=== PATIENT | male | born 1980 | race Caucasian/White ===

== ENCOUNTER 2020-03-28 06:21 | Emergency (ER) | payer BC ==
[~2020-03-28] VITALS: Ht 180.3 cm; Wt 145.1 kg
[2020-03-28] MEDS ORDERED: LIDOCAINE VISCUS 2% 15 ML UDC ONE (06:44)
[2020-03-28] MEDS ORDERED: MAG HYDROX/AL HYDROX/SIMETH 30 ML LIQUID UDC ONE (06:44)
[2020-03-28] MEDS ORDERED: MAG HYDROX/AL HYDROX/SIMETH 30 ML LIQUID UDC PO ONE (06:45)
[2020-03-28] MEDS ORDERED: LIDOCAINE VISCUS 2% 15 ML UDC MM ONE (06:45)
[2020-03-28] MEDS ORDERED: PANTOPRAZOLE SODIUM 40 MG TABLET.DR PO ONE ×2 (06:45)
[2020-03-28] MEDS ORDERED: ONDANSETRON 4 MG/2 ML VIAL ONE (06:58)
[2020-03-28] MEDS ORDERED: ONDANSETRON 4 MG/2 ML VIAL IV ONE (07:00)
[2020-03-28] MEDS ORDERED: IV NORMAL SALINE 1000 ML BAG IV ONE (07:00)
[2020-03-28 07:14] LABS: BASOPHILS # (AUTO) 0.1 K/uL (0.0-8.0); BASOPHILS % (AUTO) 0.4 % (0.0-2.0); EOSINOPHILS % (AUTO) 0.2 % (0.0-7.0); HEMATOCRIT 44.2 % (36.7-47.1); HEMOGLOBIN 14.9 g/dL (12.5-16.3); LYMPHOCYTES # (AUTO) 1.5 K/uL (20.0-40.0); LYMPHOCYTES % (AUTO) 10.4 % (20.5-51.5); MEAN CORPUSCULAR HEMOGLOBIN 30.4 uug (23.8-33.4); MEAN CORPUSCULAR HGB CONC 34 g/dL (32.5-36.3); MEAN CORPUSCULAR VOLUME 90.4 fL (73.0-96.2); MONOCYTES # (AUTO) 0.5 K/uL (2.0-10.0); MONOCYTES % (AUTO) 3.5 % (0.0-11.0); NEUTROPHILS # (AUTO) 12.7 K/uL (1.8-8.9); NEUTROPHILS % (AUTO) 85.5 % (38.5-71.5); PLATELET COUNT (AUTO) 255 K/uL (152-348); RED BLOOD CELL COUNT(AUTO) 4.89 MIL/uL (4.06-5.63); WHITE BLOOD COUNT (AUTO) 14.8 K/uL (3.6-10.2)
[2020-03-28 07:24] LABS: CREATININE 1.3 mg/dL (0.6-1.3)
[2020-03-28] MEDS ORDERED: HYDROMORPHONE 1 MG/1 ML DISP.SYRIN ONE ×2 (07:27→07:59)
[2020-03-28 07:30] LABS: BILIRUBIN,DIRECT 0.1 mg/dL (0.0-0.2); BILIRUBIN,TOTAL 0.4 mg/dL (0.2-1.0); TOTAL PROTEIN, SERUM 7.8 g/dL (6.4-8.2)
[2020-03-28] MEDS ORDERED: HYDROMORPHONE 1 MG/1 ML DISP.SYRIN IV ONE ×2 (07:30→08:00)
[2020-03-28] MEDS ORDERED: SWABABLE VALVE TRANSFER SET EA MC ONE (08:16)
[2020-03-28] MEDS ORDERED: IOHEXOL 300MG/ML 100 ML INFUS..BTL ONE (08:17)
[2020-03-28] MEDS ORDERED: IV NORMAL SALINE 250 ML IV ONE (08:17)
[2020-03-28 09:44] VITALS: BP 138/76
== END 2020-03-28 09:40 | disposition home or self-care (01) ==
LOC: ER 06:25
DX: K29.70 Gastritis, unspecified, without bleeding (principal); K80.20 Calculus of gallbladder without cholecystitis without obstruction; J98.11 Atelectasis; K76.0 Fatty (change of) liver, not elsewhere classified; D72.829 Elevated white blood cell count, unspecified; R03.0 Elevated blood-pressure reading, without diagnosis of hypertension
CPT/HCPCS: 36415; 83690; 85025; 85730; A4663; J1170; J2405; J7030; J7050; Q9967

== ENCOUNTER 2021-05-16 17:38 | Inpatient (IN) | payer BC ==
[~2021-05-16] VITALS: Ht 177.8 cm; Wt 117.0 kg
[2021-05-16] MEDS ORDERED: IV NORMAL SALINE 1000 ML BAG IV ONE (18:00)
[2021-05-16] MEDS ORDERED: ONDANSETRON 4 MG/2 ML VIAL IV ONE (18:00)
[2021-05-16] MEDS ORDERED: ONDANSETRON 4 MG/2 ML VIAL ONE (18:04)
[2021-05-16 18:08] LABS: HEMATOCRIT 44.9 % (36.7-47.1); MEAN CORPUSCULAR HEMOGLOBIN 31.4 uug (23.8-33.4); MEAN CORPUSCULAR VOLUME 92.8 fL (73.0-96.2); PLATELET COUNT (AUTO) 243 K/uL (152-348)
[2021-05-16 18:42] LABS: CREATININE 1.2 mg/dL (0.6-1.3); POTASSIUM 3.8 mmol/L (3.5-5.1)
[2021-05-16 18:47] LABS: BILIRUBIN,DIRECT 0.2 mg/dL (0.0-0.2); BILIRUBIN,TOTAL 0.6 mg/dL (0.2-1.0)
[2021-05-16] MEDS ORDERED: PANTOPRAZOLE SODIUM 40 MG VIAL IV ONE (19:15)
[2021-05-16] MEDS ORDERED: MAG HYDROX/AL HYDROX/SIMETH 30 ML LIQUID UDC PO ONE (19:15)
[2021-05-16] MEDS ORDERED: LIDOCAINE VISCUS 2% 15 ML UDC MM ONE (19:15)
[2021-05-16] MEDS ORDERED: MAG HYDROX/AL HYDROX/SIMETH 30 ML LIQUID UDC ONE (19:25)
[2021-05-16] MEDS ORDERED: PANTOPRAZOLE SODIUM 40 MG VIAL ONE (19:26)
[2021-05-16] MEDS ORDERED: LIDOCAINE VISCUS 2% 15 ML UDC ONE (19:26)
[2021-05-16] MEDS ORDERED: HYDROMORPHONE 1 MG/1 ML DISP.SYRIN IV ONE ×2 (20:00→20:45)
[2021-05-16] MEDS ORDERED: HYDROMORPHONE 1 MG/1 ML DISP.SYRIN ONE ×2 (20:12→21:18)
--- NOTE | 2021-05-16 22:50 | NUR ---
Pt. admitted to [facility] , under care of Dr. Rios Belongs List completed
--- NOTE | 2021-05-16 23:15 | NUR ---
Patient admitted to [facility]. Received patient AOx4. No signs of acute distress. Patient oriented to unit and room. Call light within reach. Bed locked and in low position. Belongings accounted for. Will endorse to incoming nurse for continuity of care.
[2021-05-16] MEDS ORDERED: IV D5/ 0.9% NACL 1,000 ML IV PRN (23:45)
[2021-05-16] MEDS ORDERED: ACETAMINOPHEN 325 MG TABLET PO PRN (23:45)
[2021-05-16] MEDS ORDERED: ONDANSETRON 4 MG/2 ML VIAL IV PRN (23:45)
[2021-05-17 00:30] VITALS: BP 123/67
[2021-05-17] MEDS: MORPHINE SULFATE 4 MG/1 ML DISP.SYRIN IV PRN ×3 (00:39→08:53)
--- NOTE | 2021-05-17 01:22 | NUR ---
PT COMPLAINED FROM ABDOMINAL PAIN 03/12, CONTROLLED PAIN WITH MORPHINE IV PRN, WILL CONTINUE TO MONITOR FOR PAIN.
[2021-05-17 04:00] VITALS: BP 113/57
[2021-05-17 06:47] LABS: HEMATOCRIT 41.1 % (36.7-47.1); MEAN CORPUSCULAR HEMOGLOBIN 31.7 uug (23.8-33.4); MEAN CORPUSCULAR VOLUME 92.8 fL (73.0-96.2); PLATELET COUNT (AUTO) 207 K/uL (152-348)
[2021-05-17 07:30] LABS: BILIRUBIN,TOTAL 0.6 mg/dL (0.2-1.0); MAGNESIUM 2.4 mg/dL (1.8-2.4); POTASSIUM 3.8 mmol/L (3.5-5.1); TOTAL PROTEIN, SERUM 6.9 g/dL (6.4-8.2)
--- NOTE | 2021-05-17 07:40 | NUR ---
REPORT GIVEN TO MORNING SHIFT RNMOHAMUD
[2021-05-17] MEDS ORDERED: PANTOPRAZOLE SODIUM 40 MG VIAL IV SCH (09:00)
[2021-05-17 10:58] VITALS: BP 108/61
--- NOTE | 2021-05-17 13:10 | NUR ---
Patient requested D/C orders. Stated "If doctor does not come to see me I'm leaving". Dr. Dutta made aware. @ 1230 patient said "I'm leaving". made aware. AMA paperwork signed. IV and patient wrist band removed. Requested recent labs. Upon arrival in room at 1307 pt had left.
== END 2021-05-17 14:30 | disposition left against medical advice (07) | DRG 392 ==
LOC: ER 17:39 → MEDSURG3 20:22
PROVIDERS: ADMIT Internal Medicine; ATTEND Internal Medicine
DX: K29.70 Gastritis, unspecified, without bleeding (principal); K76.0 Fatty (change of) liver, not elsewhere classified; H81.09 Meniere's disease, unspecified ear; Z20.822 Contact with and (suspected) exposure to COVID-19
CPT/HCPCS: 36415; 71045; 83550; 83690; 83735; 84100; 85025; A4663; C9113; G0378; J1170; J2270; J2405; J7030